=== PATIENT | female | born 1940 | race Caucasian/White ===

== ENCOUNTER → 2019-12-28 | Outpatient (CLI) | payer MEDICARE, OTHER ==
--- NOTE | 2019-12-28 11:34 | Diagnostic Imaging Report ---
INDICATION: Left knee pain. FINDINGS: 4 views. There is rather severe tricompartmental arthritic disease. Loss of joint space in the medial compartment as well as the patellofemoral joint. There are moderate hypertrophic changes noted. No loose bodies are demonstrated. IMPRESSION: Rather advanced tricompartmental arthritic changes. Dictated by: Dictated on workstation # [id number]
== END ==
LOC: RAD FS 09:59
PROVIDERS: ATTEND Nurse Practitioner
DX: M17.12 Unilateral primary osteoarthritis, left knee (principal)
CPT/HCPCS: 73562